=== PATIENT | female | born 1995 | race Asian ===

== ENCOUNTER → 2023-11-27 09:30 | Outpatient (CLI) | payer OTHER, SELFPAY ==
[2023-11-27 10:14] LABS: Miscellaneous to LabCorp NATERA KIT
[2023-11-27 10:36] LABS: Add Manual Diff / Slide Review NO; Basophils Absolute Auto 0 /uL (0-100); Eosinophils Absolute Auto 100 /uL (0-450); Eosinophils Percent Auto 0.6 % (2-4); Hematocrit 38.3 % (36-46); Hemoglobin 13.3 g/dL (12.0-16.0); Lymphocytes Absolute Auto 1900 /uL (1100-4500); Lymphocytes Percent Auto 14.3 % (25-40); Mean Corpuscular HGB Conc 34.8 % (30-36); Mean Corpuscular Hemoglobin 30.6 PG (26-34); Mean Corpuscular Volume 88.1 fL (80-100); Monocytes Absolute Auto 600 /uL (0-900); Monocytes Percent Auto 4.7 % (3-14); Neutrophils Absolute Auto 10700 /uL (1500-7000); Neutrophils Percent Auto 80.4 % (50-75); Platelet Count 250 X10^3/uL (150-400); Red Blood Cell Count 4.35 X10^6/uL (4.0-5.2); Red Cell Distribution Width 13.7 % (11.6-14.8); White Blood Cell Count 13.3 X10^3/uL (4.5-11.0)
[2023-11-27 11:18] LABS: Appearance Urine UA SL CLOUDY; Bilirubin Urine UA NEGATIVE (NEGATIVE); Color Urine UA YELLOW; Glucose Urine UA NEGATIVE (Negative); Ketones Urine UA NEGATIVE (NEGATIVE); Leukocyte Esterase Urine UA 1+ (NEGATIVE); Nitrite Urine UA NEGATIVE (Negative); Occult Blood Urine UA NEGATIVE (Negative); Protein Urine UA NEGATIVE (Negative); Urobilinogen Urine UA 0.2 E.U./dL (0.2)
[2023-11-27 11:20] LABS: pH Urine UA 6.5 (4.5-8.0)
[2023-11-27 11:21] LABS: Urine Volume 10mL (spun)
[2023-11-27 11:26] LABS: RBC Urine None Seen (0-5/HPF)
[2023-11-27 11:27] LABS: Amorphous Sediment Urine 2+; Bacteria Urine None Seen; Culture Indicated Urine Cult Not Indicated; Squamous Epithelial Cell Urine 0-1 /HPF (0-5/HPF); WBC Urine 1-5/HPF (0-5/HPF)
[2023-11-27 16:48] LABS: Hepatitis B Surface Antigen NEGATIVE s/c (NEGATIVE); Rubella Antibody IgG 42.8 IU/mL (>15)
[2023-11-27 17:43] LABS: HIV 1 & 2 Ab/Ag 4th Gen Combo NEGATIVE (NEGATIVE); Hep C Virus Ab w/Reflex Quant NEGATIVE s/c (NEGATIVE)
[2023-11-28 08:25] LABS: Varicella IgG Antibody 991 index (Immune >165)
[2023-11-29 06:41] LABS: RPR Screen Non Reactive (Non Reactive)
== END ==
PROVIDERS: Referring Provider Student in an Organized Health Care Education/Training Program; Visit Provider Student in an Organized Health Care Education/Training Program
DX: Z13.79 Encounter for other screening for genetic and chromosomal anomalies (principal); Z31.438 Encounter for other genetic testing of female for procreative management; Z3A.14 14 weeks gestation of pregnancy; Z36.0 Encounter for antenatal screening for chromosomal anomalies; Z34.00 Encounter for supervision of normal first pregnancy, unspecified trimester
CPT/HCPCS: 36415; 80055; 81003; 81015; 86787; 86803; 86850; 86900; 86901; 87086; 87389

== ENCOUNTER → 2024-01-13 07:43 | Outpatient (CLI) | payer OTHER, SELFPAY ==
--- NOTE | 2024-01-13 07:44 | DI.US.S_ITS ---
PROCEDURE: US OB >= 14 WEEKS FETUS INDICATIONS: ANATOMY OUTSIDE/PRIOR DATING DATA: LMP-based estimated date of delivery (FILIBERTO): 05/25/2024. First dating scan (date and location): 10/21/2023. Estimated date of delivery (FILIBERTO) from first dating scan: 05/26/2024. The calculations are made using the clinical FILIBERTO of 05/25/2024. TECHNIQUE: Real-time scanning was performed of the fetus, with image documentation and biometric measurements. Endovaginal scanning: Not performed COMPARISON: None. FINDINGS: General: A single living intrauterine gestation is present. Presentation: Variable. Placenta: Placental position is anterior , without previa. Amniotic fluid index: 17.9 cm, normal range is 5-24 cm. Single deepest vertical pocket is 6.3 cm. heart rate: 145 beats per minute. Maternal cervical canal: 3.6 cm long. Normal lower limit is 2.5 cm. biometrics: Biparietal diameter: 5.2 cm, 21 weeks 5 days Head circumference: 18.9 cm, 21 weeks 1 day Abdominal circumference: 15.6 cm, 20 weeks 5 days Femur length: 3.2 cm, 19 weeks 6 days Clinically estimated gestational age: 21 weeks 0 days Composite gestational age from present scan: 20 weeks 6 days Estimated weight and percentile: 357 g, 20 percentile Anatomic survey: Neuro: Ventricles are non-dilated at less than 10 mm. Cisterna magna is normal at 3-11 mm. Cerebellum is normal in size and morphology. Nuchal skin fold: Normal at less than 6 mm between 14-21 weeks gestational age. Face: Nose and lips, facial profile are normal. Spine: No evidence for spina bifida. Heart: 4-chambered heart is present, with normal ventricular outflow tracts. There is a probable left ventricular echogenic intracardiac focus. Diaphragm: Diaphragm is intact. Stomach: Left-sided stomach is present. Kidneys: No hydronephrosis. Normal is less than 5 mm in 2nd trimester, less than 7 mm in 3rd trimester. Cord: 3-vessel cord has orthotopic insertion. Bladder: Normal in size. Extremities: All 4 extremities identified. IMPRESSION: 1. Single live intrauterine consistent with 20 weeks and 6 days. 2. There is a left ventricular echogenic intracardiac focus. Consider aneuploidy screening for further evaluation. 3. The remainder of the anatomic survey is within normal limits. We strive to produce accurate, complete, and clear reports of imaging services. To assist us in improving patient care, this report was composed using standard report templates and voice recognition software. Therefore, it may contain abnormal punctuation, insertions and/or omissions. Occasional wrong-word or sound-alike substitutions may occur. Though we review the report and make efforts to correct it, we do recommend that the report be read carefully in proper context to recognize any text inaccuracies. Dictated by: Martir Bishop M.D. on 01/13/2024 at 11:18 Approved by: Martir Bishop M.D. on 01/13/2024 at 11:40
== END ==
PROVIDERS: Referring Provider Student in an Organized Health Care Education/Training Program; Visit Provider Student in an Organized Health Care Education/Training Program
DX: Z36.89 Encounter for other specified antenatal screening (principal); Z3A.20 20 weeks gestation of pregnancy
CPT/HCPCS: 76811

== ENCOUNTER → 2024-02-11 16:39 | Outpatient (CLI) | payer OTHER, SELFPAY ==
[2024-02-11 18:16] LABS: Hematocrit 33.6 % (36-46); Hemoglobin 11.6 g/dL (12.0-16.0)
[2024-02-11 18:38] LABS: GTT (PREG) 1 Hour PP 50gm Dose 119 mg/dL (76-139)
== END ==
PROVIDERS: Student in an Organized Health Care Education/Training Program; Referring Provider Family Medicine; Visit Provider Family Medicine
DX: Z34.92 Encounter for supervision of normal pregnancy, unspecified, second trimester (principal); Z13.1 Encounter for screening for diabetes mellitus; Z3A.24 24 weeks gestation of pregnancy
CPT/HCPCS: 36415; 82950; 85014; 85018

== ENCOUNTER → 2024-04-20 11:18 | Outpatient (CLI) | payer OTHER, SELFPAY ==
[2024-04-20 12:09] LABS: Alanine Aminotransferase 16 IU/L (<35); Albumin 3.7 g/dL (3.5-5.0); Albumin Globulin Ratio 1.2 (1.0-2.8); Alkaline Phosphatase 121 U/L (38-126); Aspartate Aminotransferase 27 IU/L (14-36); BUN Creatinine Ratio 11.9 (6-22); Bilirubin Total 0.3 mg/dL (0.2-1.3); Blood Urea Nitrogen 5 mg/dL (7-17); Calcium 9.3 mg/dL (8.4-10.2); Carbon Dioxide 25 mmol/L (22-32); Chloride 105 mmol/L (98-107); Estimated Glomerular Filt Rate > 60 mL/min (>60); Globulin 3.1 g/dL (1.7-4.1); Glucose 115 mg/dL (70-100); HEMOLYSIS < 15 (0-50); Potassium 4.2 mmol/L (3.4-5.1); Sodium 135 mmol/L (137-145); Total Protein 6.8 g/dL (6.3-8.2)
== END ==
LOC: LAB 11:19
PROVIDERS: Referring Provider Student in an Organized Health Care Education/Training Program; Visit Provider Student in an Organized Health Care Education/Training Program
DX: L29.8 Other pruritus (principal)
CPT/HCPCS: 36415; 80053; 82239

== ENCOUNTER → 2024-04-27 10:41 | Outpatient (CLI) | payer OTHER, SELFPAY ==
[2024-04-28 08:47] LABS: Strep Grp B PCR NEG for Grp B Strep
== END ==
PROVIDERS: Visit Provider Student in an Organized Health Care Education/Training Program
DX: Z3A.36 36 weeks gestation of pregnancy (principal)
CPT/HCPCS: 87653

== ENCOUNTER 2024-05-20 17:59 | Outpatient (CLI) | payer OTHER, SELFPAY ==
[2024-05-20 19:14] LABS: Add Manual Diff / Slide Review NO; Basophils Absolute Auto 0 /uL (0-100); Basophils Percent Auto 0.4 % (0-2); Eosinophils Absolute Auto 100 /uL (0-450); Eosinophils Percent Auto 0.6 % (2-4); Hematocrit 31.4 % (36-46); Hemoglobin 10.5 g/dL (12.0-16.0); Lymphocytes Absolute Auto 1200 /uL (1100-4500); Lymphocytes Percent Auto 11.3 % (25-40); Mean Corpuscular HGB Conc 33.4 % (30-36); Mean Corpuscular Hemoglobin 26.5 PG (26-34); Mean Corpuscular Volume 79.3 fL (80-100); Monocytes Absolute Auto 500 /uL (0-900); Monocytes Percent Auto 5.2 % (3-14); Neutrophils Absolute Auto 8400 /uL (1500-7000); Neutrophils Percent Auto 82.5 % (50-75); Platelet Count 254 X10^3/uL (150-400); Red Blood Cell Count 3.96 X10^6/uL (4.0-5.2); Red Cell Distribution Width 15.6 % (11.6-14.8); White Blood Cell Count 10.2 X10^3/uL (4.5-11.0)
[2024-05-20 19:20] LABS: Creatinine Urine Random 155.54 mg/dL; Protein (Total) Urine Random 11 mg/dL (0-12); Protein Creatinine Ratio Urine 0.07 GRAM/24H
[2024-05-20 19:32] LABS: Alanine Aminotransferase 17 IU/L (<35); Albumin 3.5 g/dL (3.5-5.0); Albumin Globulin Ratio 1.3 (1.0-2.8); Alkaline Phosphatase 141 U/L (38-126); Aspartate Aminotransferase 26 IU/L (14-36); BUN Creatinine Ratio 26.8 (6-22); Bilirubin Total 0.3 mg/dL (0.2-1.3); Blood Urea Nitrogen 11 mg/dL (7-17); Calcium 8.4 mg/dL (8.4-10.2); Carbon Dioxide 21 mmol/L (22-32); Chloride 107 mmol/L (98-107); Estimated Glomerular Filt Rate > 60 mL/min (>60); Globulin 2.8 g/dL (1.7-4.1); Glucose 133 mg/dL (70-100); HEMOLYSIS < 15 (0-50); Potassium 3.9 mmol/L (3.4-5.1); Sodium 135 mmol/L (137-145); Total Protein 6.3 g/dL (6.3-8.2); Uric Acid 5.2 mg/dL (2.5-6.2)
== END 2024-05-20 20:02 | disposition home or self-care (01) ==
LOC: LABOR 18:02 → OB 05-24 10:12
PROVIDERS: Obstetrics & Gynecology; Referring Provider Student in an Organized Health Care Education/Training Program; Visit Provider Student in an Organized Health Care Education/Training Program
DX: O16.3 Unspecified maternal hypertension, third trimester (principal); Z3A.39 39 weeks gestation of pregnancy
CPT/HCPCS: 59025; 80053; 82570; 84156; 84550; 85025; G0378; G0379

== ENCOUNTER 2024-05-23 19:07 | Inpatient (IN) | payer OTHER, SELFPAY ==
[2024-05-23 19:40] VITALS: BP 124/77
--- NOTE | 2024-05-23 19:48 | P.HPOB_ITS ---
OB HPI Date/Time Date of admission: 05/23/24 History of Present Condition Chief complaint: Induction FILIBERTO Calculator Estimated Delivery Date Method Current WG Current Estimate 05/25/24 LMP (Certain) 39w 5d Other Estimates 05/26/24 Ultrasound #1 39w 4d : 1 Para: 0 Narrative: Patient with uncomplicated here for elective IOL. GBS neg. care: good care Dating criteria OB: LMP confirmed by 1st trimester US Ultrasounds: normal 1st trimester US and normal mid trimester US Obstetrical complications: none Medical complications OB: none Preadmission Labs Last OB Lab Results: Blood Type A Positive 11/27/23 10:02 Antibody Screen Negative 11/27/23 10:02 Hct 31.4 % (36-46) L 05/20/24 19:05 Hgb 10.5 g/dL (12.0-16.0) L 05/20/24 19:05 Hep Bs Antigen Negative s/c (NEGATIVE) 11/27/23 10:02 Hepatitis C Antibody Negative s/c (NEGATIVE) 11/27/23 10:02 Rubella Antibody 42.8 IU/mL (>15) 11/27/23 10:02 VZV IgG Antibody 991 index (Immune >165) 11/27/23 10:02 Glucose 1 Hr 50 gm 119 mg/dL (76-139) 02/11/24 16:49 Group B Strep (PCR) Neg for grp b strep 04/27/24 10:41 Glucose Tolerance Testin hr -: Chlamydia screen: negative and Gonorrhea screen: negative Genetic Screens: Cell-free DNA: Normal Evaluation Evaluation Baseline heart rate: 135 Variability: Average (6-10) monitor accelerations: Present Monitor Decelerations: Absent Category of Tracing: Reactive PFSH Medical History (Updated 04/20/24 @ 11:05 by Peri Canas MD) Wears glasses Hearing decreased Anxiety Healthy adult Surgical History (Updated 10/21/23 @ 08:05 by Yessi Rizvi RN) No pertinent past surgical history Family History (Updated 11/21/23 @ 20:30 by Stefanie Tracey) Grandmother Lung cancer Smoker Grandfather Colon cancer Diabetes mellitus Stroke Mother Ovarian cyst H/O bilateral oophorectomy Hypertension Uncle Hypertension Aunt Hypertension Grandfather Pancreatic cancer Smoker Diabetes mellitus Grandmother Cancer Smoker Uncle Celiac disease Social History marital status: number of children: 0 household members: spouse lives independently: Yes caregiver/support person: No housing: house pets and animals: Yes (several birds, managing cage care) education level: college occupational status: employed 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) special ericka needs: No travel history: over 6 months ago seatbelt use: always water heater temp set < 120 deg: Yes working smoke detector in home: Yes fire extinguisher in home: Yes carbon monox detector in home: Yes firearms in home: Yes firearms unloaded and locked: Yes do you feel safe at home: Yes Smoking Status: Never smoker second hand exposure: No alcohol intake: former substance use type: does not use during the past year weight has: remained stable well-balanced diet: rarely or never daily servings fruits/ve-1 caffeine: Yes (aware of 200mg limit) Type(s) of exercise: walking Meds Home Medications and Allergies Home Medications Medication Instructions Recorded Confirmed Type vitamin-ferrous sulfate tab PO 10/21/23 05/17/24 History 27 mg iron-folic acid 0.8 mg tablet Allergies Allergy/AdvReac Type Severity Reaction Status Date / Time No Known Drug Allergies Allergy Unverified 05/17/24 15:04 Assessment and Plan Assessment and Plan Assessment and Plan narrative: 28 yo G1 at 39w5d here for elective IOL. GBS neg. -vaginal miso 25 mcg overnight Time-Based Coding :: [TOTAL MINUTES] spent with patient and on the chart (including review of chart, obtaining history, exam, reviewing outside data, placing orders, documenting exam and treatment plan, and counseling patient) on [DATE].
[2024-05-23 20:04] LABS: Add Manual Diff / Slide Review NO; Basophils Absolute Auto 0 /uL (0-100); Basophils Percent Auto 0.2 % (0-2); Eosinophils Absolute Auto 100 /uL (0-450); Eosinophils Percent Auto 0.6 % (2-4); Hematocrit 32.6 % (36-46); Hemoglobin 10.7 g/dL (12.0-16.0); Lymphocytes Absolute Auto 1200 /uL (1100-4500); Lymphocytes Percent Auto 11.1 % (25-40); Mean Corpuscular HGB Conc 32.9 % (30-36); Mean Corpuscular Hemoglobin 25.8 PG (26-34); Mean Corpuscular Volume 78.5 fL (80-100); Monocytes Absolute Auto 600 /uL (0-900); Monocytes Percent Auto 5.7 % (3-14); Neutrophils Absolute Auto 9200 /uL (1500-7000); Neutrophils Percent Auto 82.4 % (50-75); Platelet Count 262 X10^3/uL (150-400); Red Blood Cell Count 4.15 X10^6/uL (4.0-5.2); Red Cell Distribution Width 15.9 % (11.6-14.8); White Blood Cell Count 11.2 X10^3/uL (4.5-11.0)
[2024-05-23 20:16] LABS: Uric Acid 4.7 mg/dL (2.5-6.2)
[2024-05-23] MEDS: miSOPROStoL 25 MCG TABLET VAG (20:40)
[2024-05-24] MEDS: LACTATED RINGERS 1,000 ML 100 ML IV (00:49)
--- NOTE | 2024-05-24 01:41 | PM.AN.REGBLK ---
Regional Block Pre-procedure Procedure: Continuous Lumbar Epidural for L&D Attending OB provider: Peri Canas PM/ROS narrative: elective IOL, term, no obstetric or medical complications. ASA Class: II Labs: Hct 32.6 % (36-46) L 05/23/24 19:50 Plt Count 262 X10^3/uL (150-400) 05/23/24 19:50 Medications: Current Medications Generic Name Dose Route Start Last Admin Trade Name Freq PRN Reason Stop Dose Admin Acetaminophen 650 mg 05/23/24 19:40 Acetaminophen 325 Mg Tablet PO Q4HR PRN Fever/Mild Pain (1-3) Calcium Carbonate 1,000 mg 05/23/24 19:40 Calcium Carbonate 500 Mg Tab PO Q4HR PRN Dyspepsia Carboprost Tromethamine 250 mcg 05/23/24 19:40 Carboprost 250 Mcg/Ml Ampul IM Q90M PRN Bleeding Fentanyl 50 mcg 05/23/24 19:40 Fentanyl 100 Mcg/2 Ml Inj IV Q1H PRN Pain, Moderate (4-6) Lactated Ringer's 1,000 mls @ 100 mls/hr 05/23/24 19:45 05/24/24 00:49 Lactated Ringers IV 100 mls/hr CONT SIA Administration Oxytocin/Lactated Ringer's 30 unit in 500 mls @ 200 mls/hr 05/23/24 19:40 Oxytocin Premix IV CONT PRN Bleeding Protocol Tranexamic Acid 1,000 mg/ 100 mls @ 600 mls/hr 05/23/24 19:40 Sodium Chloride IV NOW PRN Bleeding Lactated Ringer's 1,000 mls @ 100 mls/hr 05/23/24 19:45 Lactated Ringers IV CONT SIA Lidocaine HCl 20 ml 05/23/24 19:40 Lidocaine 1% 20 Ml INJ INTRA-OP PRN Post Delivery Methylergonovine Maleate 0.2 mg 05/23/24 19:40 Methylergonovine 0.2 Mg/Ml Vial IM NOW PRN Bleeding Methylergonovine Maleate 0.2 mg 05/23/24 19:40 Methylergonovine 0.2 Mg Tablet PO Q6HR PRN Heavy Bleeding Misoprostol 400 mcg 05/23/24 19:40 Misoprostol 200 Mcg Tablet SL NOW PRN Bleeding Misoprostol 800 mcg 05/23/24 19:40 Misoprostol 200 Mcg Tablet MI NOW PRN Bleeding Naloxone HCl 0.2 mg 05/23/24 19:40 Naloxone 0.4 Mg/Ml Vial IV Q2MIN PRN Opiate Reversal Ondansetron HCl 4 mg 05/23/24 19:40 Ondansetron 4 Mg/2 Ml Inj IV Q4HR PRN Nausea And Vomiting Oxytocin 10 unit 05/23/24 19:40 Oxytocin 10 Unit/Ml Vial IM NOW PRN Bleeding Zolpidem Tartrate 5 mg 05/23/24 19:40 Zolpidem 5 Mg Tablet PO BEDTIME PRN Sleep Allergies: Allergies Allergy/AdvReac Type Severity Reaction Status Date / Time No Known Drug Allergies Allergy Unverified 05/17/24 15:04 Procedure Insertion date: 05/24/24 Insertion time: 02:01 Prep/Local: betadine x3 and 1% lidocaine Interspace: L3-4 Patient position: sitting Needle: 18 gauge Hustead (CSE: 27g Pencan through Hustead, clear CSF, 1mL 0.25% bupiv MPF) Loss of resistance with: saline DARNELL at (cm): 6 Catheter placed at SKIN (cm): 12 Catheter in SPACE (cm): 6 Insertion: No CSF, No Blood, No Paresthesia with insertion, No Paresthesia with injection and No Test dose reaction Initial Medications TEST DOSE time: 02:01 TEST DOSE: 1.5% lidocaine with epinephrine 1:200k (mL): 3 BOLUS DOSE time: 02:09 BOLUS DOSE (mL): 4 BOLUS DOSE med: other (infusate) Infusion INFUSION: 0.125% bupivacaine and with fentanyl 2 mcg/mL Initial rate (mL/hr): 9 Subsequent interventions: PCEA@9+4 Post-procedure Anesthesia date START: 05/24/24 Anesthesia time START: 01:47 Anesthesia date END: 05/24/24 Anesthesia time END: 06:01 Post-procedure Anesthesia Assessment: Yes CV function: HR/BP stable, Yes Resp function: RR/sat/airway adequate, Yes Post-op hydration adequate, Yes Pain control adequate, Yes Nausea & vomiting absent, Yes Temperature > 36 C, Yes Mental status appropriate and No Anesthesia complications
[2024-05-24] MEDS: TRANEXAMIC ACID 1,000 MG in SODIUM CHLORIDE 0.9% 100 ML 600 MG IV (06:18)
[2024-05-24] MEDS: miSOPROStoL 200 MCG TABLET 800 MCG PR (06:19)
[2024-05-24] MEDS: OXYTOCIN PREMIX 30 UNIT/500 ML PLAST..BAG 200 UNIT IV (06:19)
--- NOTE | 2024-05-24 06:35 | PM.OBPRVD ---
Events: Meconium Stained Fluid Labor & Delivery Delivery date: 05/24/24 Cervical ripening method: per misoprostal protocol Delivery augmentation: rupture of membranes and pitocin Delivery monitor: external FHT Route of delivery: Estimated blood loss (mL): 350 Quantitative Blood Loss: 567 Anesthesia Type: Epidural Narrative: Date 05/24/2024 BRIEF HISTORY: This a 28 year-old at 39w5d weeks who gave on 05/24/2024 at 5:51am. STAGE I:? Labor The patient labored for 3 hour(s) and 51 minute(s). Indications for Induction:elective Induction agents: miso Augmentation: AROM Rupture of membranes occurred with AROM.? Amniotic fluid: thin mec. She reached full dilation at 4:21am. Analgesia for labor was epidural. STAGE II: Delivery The second stage of labor lasted 1 hours and 30 minute(s). Presentation was OA. A baby was born.? Birthweight was 8 lb 11 oz. scores were 9 at one minute and 9 at five minutes. STAGE III: Placenta/Cord The third stage of labor lasted 6 minute(s). Placental delivery was uncomplicated and it appeared normal. Cord features: True knot. Perineal laceration:? Third degree, repaired with 3-0 vicryl EBL: 350 mL. Needle and sponge counts were correct.? The vagina was inspected and no items were left in situ. Christine was doing well with Filiberto, her and at bedside. Plan for aftercare: Routine care
[2024-05-24] MEDS: CEFAZOLIN 2 GM/100 ML PREMIX 100 ML IV (06:45)
[2024-05-24] MEDS: ACETAMINOPHEN 325 MG TABLET 650 MG PO ×3 (08:30→22:42)
[2024-05-24] MEDS: DOCUSATE 100 MG CAPSULE PO (08:52)
[2024-05-24] MEDS: KETOROLAC 30 MG/ML VIAL IV ×3 (08:53→22:41)
[2024-05-25] MEDS: ACETAMINOPHEN 325 MG TABLET 650 MG PO ×2 (05:19→11:03)
[2024-05-25] MEDS: OXYCODONE IR 5 MG TABLET PO ×2 (05:19→11:02)
[2024-05-25] MEDS: KETOROLAC 30 MG/ML VIAL IV (05:19)
--- NOTE | 2024-05-25 08:10 | PM.OBDS.1 ---
Discharge Providers Provider Date of admission: 05/23/24 19:07 Discharge Date: 05/25/24 Primary care physician: Peri Canas MD Consults: 05/23/24 19:40 Consult to Anesthesiology Urgent Comment: Consulting Provider: Anesthesiologist Reason for consultation: Epidural 05/25/24 06:36 Consult to Lock[employer]ch [employer] T[employer]er Routine Comment: Discharge provider: Peri Canas MD Summary Hospital Course Date Patient Seen: 05/25/24 Time Patient Seen: 07:45 Diagnoses: Vaginal delivery Hospital Course: 28 yo G1 now P1 who presented at 39w5d for elective IOL. She was GBS neg. She had epidural anesthesia. She received one vaginal dose of misoprostol and progressed to completed. She pushed for 30 minutes and delivered a vigorous male . She is exclusively . She has been up moving around and voided. Pain is well controlled. Bleeding is similar to menstrual cycle. Peripartum Data Infant Delivery Method: Natural Vaginal Laceration Description: Perineal - 3rd Degree complications: none Status at Discharge Cognitive/behavioral status at discharge: oriented Functional status at discharge: independent ambulation Overall status at discharge: patient is back to baseline Time Spent with Patient Time attestation: Total time spent providing and/or coordinating discharge services: Time spent: Greater than 30 minutes Objective Labs 05/23/24 19:50 Discharge Plan Discharge Plan Patient Disposition: Home Discharge orders & Medications Prescriptions: New oxycodone 5 mg Tablet 5 mg PO Q4HR PRN (Reason: Pain, Moderate (4-6)) Qty: 10 0RF polyethylene glycol 3350 [Miralax] 17 gram/dose powder 17 g PO BID Qty: 510 0RF docusate sodium 100 mg Capsule 100 mg PO BID Qty: 60 0RF acetaminophen 325 mg Tablet 650 mg PO Q4HR PRN (Reason: Fever/Mild Pain (1-3)) Qty: 60 0RF Continued vit-ferrous sulfat-FA 27 mg iron- 0.8 mg tablet PO Follow up/Referrals: Doctor Roberts MD [Primary Care Provider] - Visit Report/Discharge Packet Stand Alone Forms: Patient Portal/API Discharge Data Primary Care Provider: Doctor Alejandra
[2024-05-25] MEDS: DOCUSATE 100 MG CAPSULE PO (11:02)
[2024-05-25] MEDS: IBUPROFEN 600 MG TABLET PO (11:03)
== END 2024-05-25 12:19 | disposition home or self-care (01) | DRG 768 ==
PROVIDERS: Admitting Provider Student in an Organized Health Care Education/Training Program; Referring Provider Student in an Organized Health Care Education/Training Program; Visit Provider Student in an Organized Health Care Education/Training Program
DX: O70.20 Third degree perineal laceration during delivery, unspecified (principal); Z37.0 Single live birth; Z3A.39 39 weeks gestation of pregnancy
CPT/HCPCS: 36415; 59025; 59050; 59200; 80053; 82570; 84156; 84550; 85025; 86850; 86900; 86901; G0379; J0690; J1885; J2590; S0191

== ENCOUNTER 2024-05-26 13:39 | Observation (INO) | payer OTHER, SELFPAY ==
[2024-05-26 13:50] VITALS: BP 121/77; PULSE 103; RESP 16; O2SAT 97
[2024-05-26] MEDS: IBUPROFEN 600 MG TABLET PO (14:22)
[2024-05-26 14:25] VITALS: BP 117/75; PULSE 80; RESP 16; TEMP 36.8
[2024-05-26 14:36] LABS: Add Manual Diff / Slide Review NO; Basophils Absolute Auto 100 /uL (0-100); Basophils Percent Auto 0.4 % (0-2); Eosinophils Absolute Auto 300 /uL (0-450); Eosinophils Percent Auto 1.7 % (2-4); Hematocrit 26.9 % (36-46); Hemoglobin 8.7 g/dL (12.0-16.0); Lymphocytes Absolute Auto 1800 /uL (1100-4500); Lymphocytes Percent Auto 10.1 % (25-40); Mean Corpuscular HGB Conc 32.4 % (30-36); Mean Corpuscular Hemoglobin 25.7 PG (26-34); Mean Corpuscular Volume 79.3 fL (80-100); Monocytes Absolute Auto 800 /uL (0-900); Monocytes Percent Auto 4.7 % (3-14); Neutrophils Absolute Auto 14500 /uL (1500-7000); Neutrophils Percent Auto 83.1 % (50-75); Platelet Count 289 X10^3/uL (150-400); Red Cell Distribution Width 15.7 % (11.6-14.8); White Blood Cell Count 17.4 X10^3/uL (4.5-11.0)
--- NOTE | 2024-05-26 14:36 | PC.NURSE ---
1345: Pt presents to [facility] from the ER w/ c/o headache, joint pain, sharp pain under her ribs and on side of abdomen. She states she has been taking oxycodone but trying to wean off of it. Pt stated she had not taken any Ibuprofen or Tylenol since yesterday. She also states she drinks a lot of juice and probably not enough water. 1356: Dr. RAND in office and notified of pt and verbal orders received
[2024-05-26 14:39] LABS: Alanine Aminotransferase 19 IU/L (<35); Albumin 3.1 g/dL (3.5-5.0); Albumin Globulin Ratio 1.1 (1.0-2.8); Alkaline Phosphatase 113 U/L (38-126); Aspartate Aminotransferase 30 IU/L (14-36); BUN Creatinine Ratio 8.3 (6-22); Bilirubin Total 0.2 mg/dL (0.2-1.3); Blood Urea Nitrogen 4 mg/dL (7-17); Calcium 7.9 mg/dL (8.4-10.2); Carbon Dioxide 25 mmol/L (22-32); Chloride 108 mmol/L (98-107); Estimated Glomerular Filt Rate > 60 mL/min (>60); Globulin 2.8 g/dL (1.7-4.1); Glucose 104 mg/dL (70-100); HEMOLYSIS < 15 (0-50); Potassium 3.5 mmol/L (3.4-5.1); Sodium 138 mmol/L (137-145); Total Protein 5.9 g/dL (6.3-8.2)
[2024-05-26 14:45] VITALS: BP 114/76; PULSE 96; RESP 16
--- NOTE | 2024-05-26 14:45 | PC.NURSE ---
1408: CBC/CMP drawn by RN and sent to lab
--- NOTE | 2024-05-26 14:53 | PC.NURSE ---
1445: pt resting in bed. Bilateral patellar reflexes 2+, no clonus. Bilateral pedal edema 2+ pitting
--- NOTE | 2024-05-26 15:01 | PM.OBTRLD ---
Visit Information Visit Information Date of evaluation: 05/26/24 Primary OB Provider: Peri Canas Reason for Evaluation: Yes other Comments/Additional reasons for admission: Patient presented 2 days from a vaginal delivery with headache and joint pain. She has not taken ibuprofen or tylenol since yesterday. She has been taking oxycodone for pain control. She is . Vital Signs Vital Signs: Vital Signs - 8 hr 05/26/24 13:50 05/26/24 14:25 05/26/24 14:45 Temperature 98.3 F Pulse Rate 103 H 80 96 H Respiratory Rate 16 16 16 Blood Pressure 121/77 117/75 114/76 Pulse Oximetry 97 PFSH Medical History (Updated 04/20/24 @ 11:05 by Peri Canas MD) Wears glasses Hearing decreased Anxiety Healthy adult Surgical History (Updated 10/21/23 @ 08:05 by Yessi Rizvi RN) No pertinent past surgical history Family History (Updated 11/21/23 @ 20:30 by Stefanie Tracey) Grandmother Lung cancer Smoker Grandfather Colon cancer Diabetes mellitus Stroke Mother Ovarian cyst H/O bilateral oophorectomy Hypertension Uncle Hypertension Aunt Hypertension Grandfather Pancreatic cancer Smoker Diabetes mellitus Grandmother Cancer Smoker Uncle Celiac disease Social History marital status: number of children: 0 household members: spouse lives independently: Yes caregiver/support person: No housing: house pets and animals: Yes (several birds, managing cage care) education level: college occupational status: employed 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 needs: No travel history: over 6 months ago seatbelt use: always water heater temp set < 120 deg: Yes working smoke detector in home: Yes fire extinguisher in home: Yes carbon monox detector in home: Yes firearms in home: Yes firearms unloaded and locked: Yes do you feel safe at home: Yes Smoking Status: Never smoker second hand exposure: No alcohol intake: former substance use type: does not use during the past year weight has: remained stable well-balanced diet: rarely or never daily servings fruits/ve-1 caffeine: Yes (aware of 200mg limit) Type(s) of exercise: walking Exam Vital Signs (past 8 hours): - 05/26/24 13:50 05/26/24 14:25 05/26/24 14:45 Temperature 98.3 F Pulse Rate 103 H 80 96 H Respiratory Rate 16 16 16 Blood Pressure 121/77 117/75 114/76 Pulse Oximetry 97 Objective Labs 05/26/24 14:10 05/26/24 14:10 Labs: Laboratory Results - last 24 hr 05/26/24 14:10 WBC 17.4 H RBC 3.40 L Hgb 8.7 L Hct 26.9 L MCV 79.3 L MCH 25.7 L MCHC 32.4 RDW 15.7 H Plt Count 289 Neut % (Auto) 83.1 H Lymph % (Auto) 10.1 L Citrus % (Auto) 4.7 Eos % (Auto) 1.7 L Baso % (Auto) 0.4 Neut # (Auto) 13838 H Lymph # (Auto) 1800 Citrus # (Auto) 800 Eos # (Auto) 300 Baso # (Auto) 100 Sodium 138 Potassium 3.5 Chloride 108 H Carbon Dioxide 25 BUN 4 L Creatinine 0.48 L Estimated GFR > 60 BUN/Creatinine Ratio 8.3 Glucose 104 H Calcium 7.9 L Total Bilirubin 0.2 AST 30 ALT 19 Alkaline Phosphatase 113 Total Protein 5.9 L Albumin 3.1 L Globulin 2.8 Albumin/Globulin Ratio 1.1 Diagnosis, Plan/Disposition Plan/Disposition Plan: Safe for discharge. CMP and CBC without concerns of pre-eclampsia. WBC slightly elevated however, BP, pulse and temp normal, likely reactive from delivery. Recommend increasing water intake and eating small meals throughout the day. Follow up in 2 days with PCP. OB Disposition: home
--- NOTE | 2024-05-26 15:15 | PC.NURSE ---
orders received from Dr. RAND-pt may discharge home. This RN verbalized discharge instructions to pt and her SO. she verbalized understanding. Pt to f/u w/ Dr. RAND in office on monday 05/28
== END 2024-05-26 15:17 | disposition home or self-care (01) ==
PROVIDERS: Admitting Provider Family Medicine; Referring Provider Family Medicine; Visit Provider Family Medicine
DX: O90.89 Other complications of the puerperium, not elsewhere classified (principal); R51.9 Headache, unspecified; D72.829 Elevated white blood cell count, unspecified; M25.50 Pain in unspecified joint
CPT/HCPCS: 80053; 85025; G0378; G0379

== ENCOUNTER 2025-03-15 21:06 | Emergency (ER) | payer OTHER, SELFPAY ==
[2025-03-15 21:22] VITALS: BP 120/66; PULSE 110; RESP 18; TEMP 37.6; O2SAT 97; BMI 25.8
--- NOTE | 2025-03-15 21:49 | ED_ITS ---
HPI - URI/Sore Throat General Chief Complaint: Upper Respiratory Symptoms Stated Complaint: states narly flu symptoms Time Seen by Provider: 03/15/25 21:49 Source: patient Mode of arrival: Ambulatory History of Present Illness HPI Narrative: 29-year-old female with no no significant past medical history presenting for upper respiratory symptoms, states it has been having a cough over the past week, states as she has also been having some runny nose, chills, states that symptoms have not gotten any better therefore decided come into the ED for further evaluation treatment. Denies any other symptoms at this time. she states that 2 of her other coworkers had similar symptoms prior, she states that they did get diagnosed with pneumonia and she is worried that she might have this as well which is what brought her in. Related Data Home Medications Medication Instructions Recorded Confirmed No Known Home Medications 03/15/25 03/15/25 Allergies Allergy/AdvReac Type Severity Reaction Status Date / Time No Known Drug Allergies Allergy Verified 03/15/25 21:22 Review of Systems Review of Systems Narrative: General: Denies fever, chills, weight loss HEENT: positive rhinorrhea,Denies headache, eye drainage, eye irritation, head trauma, sore throat, voice change Cardiovascular: Denies any chest pain, palpitations, tachycardia Respiratory: positive cough, Denies any shortness of breath wheeze, stridor GI/: Denies any abdominal pain, nausea, vomiting, diarrhea, bright red blood per rectum, melanotic stools, urinary frequency, urinary retention, dysuria, hematuria MSK: Denies any joint pain, muscle pains, swelling Skin: Denies any rashes, lesions, discoloration Neuro: Denies any headache, lightheadedness, dizziness, fainting, weakness Psych: Denies SI/HI Patient History Medical History (Updated 03/15/25 @ 22:27 by Doron Miranda DO) Wears glasses Hearing decreased Anxiety Healthy adult Surgical History (Updated 10/21/23 @ 08:05 by Yessi Rizvi RN) No pertinent past surgical history Family History (Updated 11/21/23 @ 20:30 by Stefanie Tracey) Grandmother Lung cancer Smoker Grandfather Colon cancer Diabetes mellitus Stroke Mother Ovarian cyst H/O bilateral oophorectomy Hypertension Uncle Hypertension Aunt Hypertension Grandfather Pancreatic cancer Smoker Diabetes mellitus Grandmother Cancer Smoker Uncle Celiac disease Social History marital status: number of children: 0 household members: spouse lives independently: Yes caregiver/support person: No housing: house pets and animals: Yes (several birds, managing cage care) education level: college occupational status: employed 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) special ericka needs: No travel history: over 6 months ago seatbelt use: always water heater temp set < 120 deg: Yes working smoke detector in home: Yes fire extinguisher in home: Yes carbon monox detector in home: Yes firearms in home: Yes firearms unloaded and locked: Yes do you feel safe at home: Yes Smoking Status: Never smoker second hand exposure: No alcohol intake: former substance use type: does not use during the past year weight has: remained stable well-balanced diet: rarely or never daily servings fruits/ve-1 caffeine: Yes (aware of 200mg limit) Type(s) of exercise: walking Smoking Status: Never smoker Exam Narrative Exam Narrative: General: Cooperative, well-developed, not in acute distress HEENT: Normocephalic, atraumatic, PERRLA, normal sclera, eyelids normal Neck: Active full range of motion, atraumatic Chest: Normal to inspection, negative crepitus, no overlying erythema ecchymosis Respiratory: coughing on exam, Normal respiratory effort, not in acute resp iratory distress, clear to auscultation bilaterally negative wheeze, tachypnea, rhonchi, rales Cardiology: Regular rate rhythm negative gallop, murmur, rubs GI/: No tenderness to palpation, soft, non rigid, normal to inspection, exam deferred MSK: Full active range of motion in all 4 extremities, atraumatic, no tenderness to palpation of any bony prominences Skin: No rashes or lesions noted Neuro: Alert awake oriented x3, moves all 4 extremities spontaneously, cranial nerves intact, able to answer all questions appropriately follows commands appropriately Psych: Cooperative, negative suicidal or homicidal ideations Initial Vital Signs Initial Vital Signs: Vital Signs Temperature 99.6 F 03/15/25 21:22 Pulse Rate 110 H 03/15/25 21:22 Respiratory Rate 18 03/15/25 21:22 Blood Pressure 120/66 03/15/25 21:22 Pulse Oximetry 97 03/15/25 21:22 Oxygen Delivery Method Room Air 03/15/25 21:22 Course Orders Ordered: ED Orders 03/15/25 21:26 Covid-19 + FLU A/B + RSV - PCR Stat 03/15/25 21:58 CXR [XR chest 1V] Stat Vital Signs Vital signs: Vital Signs - 8 hr 03/15/25 21:22 Temperature 99.6 F Pulse Rate 110 H Respiratory Rate 18 Blood Pressure 120/66 Pulse Oximetry 97 Oxygen Delivery Method Room Air MDM - URI/Sore Throat Differential Diagnosis Differential diagnosis: Likely upper respiratory infection, viral infection, influenza and other ( pneumonia) Lab Data Labs: Lab Results 03/15/25 Range/Units 21:26 SARS-CoV-2 (PCR) Negative (Negative) Influenza A (RT-PCR) Flu a negative (NEGATIVE) Influenza B (RT-PCR) Flu b positive H (NEGATIVE) RSV (PCR) Negative (Negative) Imaging Data Chest x-ray: Radiologist's Impression: [address] [address] XRay Report Signed Patient: Kerry Kendrick MR#: [id number] : 1995 Acct:[id number] Age/Sex: 29 / F Date of Service: 03/15/25 Loc: ED Accession Number: [id number] Procedure: XR chest 1V Ordering Provider: Doron Miranda D.O. PROCEDURE: XR CHEST 1V INDICATIONS: cough TECHNIQUE: One view of the chest was acquired. COMPARISON: None. FINDINGS: Surgical changes and devices: None. Lungs and pleura: Lungs are clear. No pleural effusions or pneumothorax. Mediastinum: Mediastinal contours appear normal. Heart size is normal. Bones and chest wall: No suspicious bony lesions. Overlying soft tissues appear unremarkable. IMPRESSION: No acute cardiopulmonary pathology. [facility] Narrative Medical decision making narrative: 29-year-old female no significant past medical history presents for flu-like symptoms has been ongoing persistent for the past week, describes symptoms as cough, as well as muscle aches fevers chills, states symptoms have been ongoing persistent for the past week, states that she had 2 coworkers with similar symptoms she states that she is worried she has pneumonia needs antibiotics due to the fact that her other 2 coworkers needed antibiotics. At time of evaluation patient coughing but is protecting airway no expiratory wheezes on auscultation of lungs, patient had respiratory panel and chest x-ray performed here in the emergency department, no signs of pneumonia. Patient well-appearing nontoxic not requiring supplemental oxygen,agrees with being discharged home with outpatient follow up Discharge Plan Departure Patient Disposition: Home Clinical Impression: Influenza B Instructions: DI for Influenza -- Adult Activity Restrictions/Additional Instructions: please follow up with your primary care doctor Please read the discharge instructions sheet carefully and bring all papers to all doctor follow-up visits, as it may contain information that your doctor may want to see. Disease processes change and evolve, if your symptoms worsen or if you develop any new symptoms that are concerning to you please return for evaluation. Your evaluation today does not show any evidence of any life- threatening/serious illnesses requiring admission to the hospital or surgery. Please follow-up with your doctor for re-evaluation in approximately 1 day. Seek immediate medical attention for any worrisome symptoms. *If you do not have a primary care provider please contact the [facility] Resource line at [phone]. They will ask some questions about your medical history and help get you set up with a doctor in the community. Prescriptions: No Action No Known Home Medications Referrals: Peri Canas MD [Primary Care Provider] - Stand Alone Forms: Patient Portal/API/Survey
--- NOTE | 2025-03-15 21:58 | DI.RAD.S_ITS ---
PROCEDURE: XR CHEST 1V INDICATIONS: cough TECHNIQUE: One view of the chest was acquired. COMPARISON: None. FINDINGS: Surgical changes and devices: None. Lungs and pleura: Lungs are clear. No pleural effusions or pneumothorax. Mediastinum: Mediastinal contours appear normal. Heart size is normal. Bones and chest wall: No suspicious bony lesions. Overlying soft tissues appear unremarkable. IMPRESSION: No acute cardiopulmonary pathology. Dictated by: Demario Marquez M.D. on 03/15/2025 at 22:34 Approved by: Demario Marquez M.D. on 03/15/2025 at 22:34
[2025-03-15 22:23] LABS: Influenza A - CEPHEID Flu A NEGATIVE (NEGATIVE); Influenza B - CEPHEID Flu B POSITIVE (NEGATIVE); Respiratory Syncytial Virus Negative (Negative)
[2025-03-15 22:24] LABS: COVID-19 CEPHEID 4-PLEX PCR Negative (Negative)
[2025-03-15 23:02] VITALS: BP 117/67; PULSE 104; RESP 24; O2SAT 96
== END 2025-03-15 23:03 | disposition home or self-care (01) ==
PROVIDERS: Emergency Provider Student in an Organized Health Care Education/Training Program; PCP Student in an Organized Health Care Education/Training Program
DX: J10.1 Influenza due to other identified influenza virus with other respiratory manifestations (principal)
CPT/HCPCS: 0241U; 71045; 99281; 99283

== ENCOUNTER 2025-04-12 13:45 | Outpatient (RCR) | payer OTHER, SELFPAY ==
--- NOTE | 2025-04-06 16:53 | OT.OPPOC ---
Physical, Occupational & Speech Therapy At [facility] Kerry Kendrick [id number] 1995 Visit Care Team Role Provider Type Peri Canas MD Family Provider Physician Primary Care Provider Address: [facility] [place], [address] Bo Martínez MD Attending Provider Physician Referring Provider Address: [address] [place] [address], [address] Occupational Therapy Plan of Care OT Outpatient Adult Evaluation Start: 04/06/25 13:32 Freq: Status: Active Protocol: Document 04/06/25 13:32 (Rec: 04/06/25 13:35 [id number]) General Information - Adult Visit Information Visit Number 1 of 4 Plan of Care Dates 04/06/25-05/04/25 Insurance [employer], no [place];no copay;$100 deductible satisfied;max Information 60 PT/OT/ST combined Session Time Visit Start Date 04/06/25 Visit Start Time 13:45 Visit Stop Time 14:30 Setting Treatment Setting Outpatient Care Visit Type Note Type Initial Evaluation Referral Referring Physician Dr Bo Martínez Reason for Referral recurrent ganglion cysts with R wrist pain Identification Identification Yes Confirmed Identification EMR Confirmed By Social Information Social History I haven't really had much pain since the surgery, and have been able to use it but, I am careful and don't mushroom picker much weight Patient Questionnaires Quick Dash- Upper Extremity Quick Dash UE Score 25 Quick Dash UE 20 to 39% Impaired (Score 20-39) Impairment Goals Objective Measurements Objective Pt with 5/5 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 Pt reports negligible pain since surgery though noting numbness at thenar eminence of R hand. Pt advised she has been avoiding lifting much weight but has been using her affected hand as usual with surgical bandage intact. Short Term Goals Short Term Goals 1. Pt will independently demo HEP 2. Pt will report 0/10 pain at rest Senior Care Goals Piano Mechanic Goals 1. Pt will demonstrate improved perception of functional independence as evidenced by quick DASH score <15 2. Pt will verbalize proper splint use and wear independently to prevent functional deficits or skin breakdown Assessment/Plan Assessment Patient Response Excellent Rehabilitation Excellent Potential Impairments Functional Activities,Pain,Range of Motion,Meaningful Identified Activities,Stiffness,Soft Tissue Mobility Treatment Assessment 29 year old R hand dominant female referred to Occupational Therapy by Dr Bo Beaver following surgical excision of multiple ganglion cysts of R wrist that were causing nerve compression and numbness with intermittent pain. Pt POD 8 at time of evaluation and thus strengthening/resistance deferred to next treatment pending removal of surgical bandages and follow up with surgeon 04/11. Pt demonstrating appropriate use of RUE during functional tasks, is avoiding lifting and has been completing light AROM of fingers and thumb since surgery date. Pt will benefit from continued skilled OT to address surgical after care, progression of HEP and strengthening/AROM. Home Exercise Pt educated on AROM to prevent stiffness and swelling Program until f/u with surgeon and removal of surgical bandages Reviewed with Goals,Progress Being Made,Home Exercise Program Patient Patient Excellent Understanding Plan Length of treatment 4 (weeks) Plan of Care Start 04/06/25 Date Plan of Care End 05/04/25 Date Treatment Frequency Once a Week Treatment Duration 45 Minutes Therapeutic Contents Active Range of Motion,Functional Activities,Home Exercise Program,Manual Therapy,Education,Self-Care, Stretching/Flexibility Activities,Therapeutic Activities,Therapeutic Exercises,Work Conditioning Modalities As Needed Types of Modalities Ice Massage Patient Instruction Home Exercise Program,Plan of Care,Questions/Concerns Patient Continue with Current Program Recommendations Electronically Signed by: Abimbola Pedraza OT 04/06/25 [id number] If you are in agreement with this Plan of Care, please return a signed and dated copy. I have reviewed this Plan of Care and certify that the skilled therapy services above are required to meet the patient?s needs. Physician Signature Date Printed Name and Credentials Clinical Instructor Signature Printed Name and Credentials
--- NOTE | 2025-04-12 16:31 | OT.OP.TRT ---
Visit Care Team Role Provider Type Peri Canas MD Family Provider Physician Primary Care Provider Specialty: Family Practice Obstetrics Address: [address] [place] [address], [id number] Email: [email or web address] Bo Martínez MD Attending Provider Physician Referring Provider Specialty: Orthopedics Orthopedic Surgery Address: [address] [place] [address], [id number] Email: [email or web address] Occupational Therapy Treatment Note OT Outpatient Treatment Note - Adult Start: 04/06/25 13:32 Freq: Status: Active Protocol: Document 04/12/25 16:11 (Rec: 04/12/25 16:19 [id number]) OT Outpatient Adult Treatment Note Session Time Visit Start Date 04/12/25 Visit Start Time 01:45 Visit Stop Time 02:30 Visit Information Visit Number 2 Plan of Care Dates 04/06/25-05/04/25 Setting Treatment Setting Outpatient Care Visit Type Note Type Treatment Note - Subjective Identification Type Name,Date of Identification Medical Record Reconciled With Others Present Family Comment The stitches came out, it was open in a few spots but, doing good! - Objective Objective RUE: Flight Data Technician- 31/31/32 Avg 31.3#, Tripod Pinch- 20#, Measurements Lateral Pinch- 16#; LUE: Flight Data Technician- /28 Avg 27.3# Short Term Goals 1. Pt will independently demo HEP 2. Pt will report 0/10 pain at rest Detention Goals 1. Pt will demonstrate improved perception of functional independence as evidenced by quick DASH score <15 2. Pt will verbalize proper splint use and wear independently to prevent functional deficits or skin breakdown - Treatment 1 Descriptor Pt continues to report numbness along thenar eminence, pt educated on desensitization techniques to encourage return of sensation, pt verbalized understanding Exercises 1 Descriptor HEP progressed as pt without restrictions per f/u with 04/11. Pt completed good return demo of HEP including: finger and thumb taps, thumb opposition/flexion/ extension stretch/abduction. Pt denied pain during all AROM and stretching Side Right - Assessment Patient Response to Excellent Treatment Rehabilitation Excellent Potential Impairments Functional Activities,Pain Identified Progress Towards Excellent Progress Goals Assessment of Improving Overall Progress Assessment of Pt reports post op follow up with surgeon went well, no Improvement restrictions, stitches were removed though surgical would had open portions of incision with steri-strips in place, no signs of infection, wound healing appears appropriate. Pt states she has been having almost no pain with activity though notices certain movements will be uncomfortable at incision site and ongoing numbness of thenar eminence. HEP progressed, no pain with movement of thumb or wrist. Pt making excellent progress, will continue to benefit from skilled OT intervention, continue with POC. Home Exercise HEP progressed - finger and thumb taps, thumb Program opposition/flexion/extension stretch/abduction Reviewed with Goals,Progress Being Made,Home Exercise Program Patient/Caregiver Patient/Caregiver Excellent Understanding -
--- NOTE | 2025-04-19 16:40 | OT.OP.DC ---
Visit Care Team Role Provider Type Peri Canas MD Family Provider Physician Primary Care Provider Address: [address] [place] [address], [address] Email: [email or web address] Bo Martínez MD Attending Provider Physician Referring Provider Address: [address] [place] [address], [address] Email: [email or web address] Discharge Summary OT Outpatient Discharge Summary Start: 04/06/25 13:32 Freq: Status: Active Protocol: Document 04/06/25 13:32 (Rec: 04/06/25 13:35 [id number]) General Information - Adult Plan of Care Dates 04/06/25-05/04/25 Insurance [employer], no [place];no copay;$100 deductible satisfied;max Information 60 PT/OT/ST combined Setting Treatment Setting Outpatient Care Visit Type Note Type Discharge summary Referral Referring Physician Dr Bo Martínez Reason for Referral recurrent ganglion cysts with R wrist pain Identification Identification Yes Confirmed Identification EMR Confirmed By Social Information Social History I haven't really had much pain since the surgery, and have been able to use it but, I am careful and don't picker tender much weight Patient Questionnaires Quick Dash- Upper Extremity Quick Dash UE Score 25 (on eval) Quick Dash UE 20 to 39% Impaired (Score 20-39) Impairment Goals Objective Measurements Objective 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 Pt reports negligible pain since surgery though noting numbness at thenar eminence of R hand. Pt advised she has been avoiding lifting much weight but has been using her affected hand as usual with surgical bandage intact. Short Term Goals Short Term Goals 1. Pt will independently demo HEP 2. Pt will report 0/10 pain at rest Penitentiary Goals Penitentiary Goals 1. Pt will demonstrate improved perception of functional independence as evidenced by quick DASH score <15 2. Pt will verbalize proper splint use and wear independently to prevent functional deficits or skin breakdown Assessment/Plan Assessment Patient Response Excellent Rehabilitation Excellent Potential Impairments Functional Activities,Pain,Range of Motion,Meaningful Identified Activities,Stiffness,Soft Tissue Mobility Treatment Assessment 29 year old R hand dominant female referred to Occupational Therapy by Dr Bo Beaver following surgical excision of multiple ganglion cysts of R wrist that were causing nerve compression and numbness with intermittent pain. Pt POD 8 at time of evaluation and thus strengthening/resistance deferred to next treatment pending removal of surgical bandages and follow up with surgeon 04/11. Pt demonstrating appropriate use of RUE during functional tasks, is avoiding lifting and has been completing light AROM of fingers and thumb since surgery date. Pt will benefit from continued skilled OT to address surgical after care, progression of HEP and strengthening/AROM. Home Exercise Pt educated on AROM to prevent stiffness and swelling Program until f/u with surgeon and removal of surgical bandages Reviewed with Goals,Progress Being Made,Home Exercise Program Patient Patient Excellent Understanding Plan Length of treatment 4 (weeks) Plan of Care Start 04/06/25 Date Plan of Care End 05/04/25 Date Treatment Frequency Once a Week Treatment Duration 45 Minutes Therapeutic Contents Active Range of Motion,Functional Activities,Home Exercise Program,Manual Therapy,Education,Self-Care, Stretching/Flexibility Activities,Therapeutic Activities,Therapeutic Exercises,Work Conditioning Modalities As Needed Types of Modalities Ice Massage Patient Instruction Home Exercise Program,Plan of Care,Questions/Concerns Patient Continue with Current Program Recommendations Status: Active Protocol: Document 04/19/25 16:34 (Rec: 04/19/25 16:40 [id number]) OT Outpatient Adult Treatment Note Setting Treatment Setting Outpatient Care Visit Type Note Type Discharge Summary - - Objective Short Term Goals 1. Pt will independently demo HEP [Met 6/10] 2. Pt will report 0/10 pain at rest [Met 6/10] Licensed Physical Therapist Assistant Goals 1. Pt will demonstrate improved perception of functional independence as evidenced by quick DASH score <15 [unable to assess at d/c] 2. Pt will verbalize proper splint use and wear independently to prevent functional deficits or skin breakdown [Met 6/10] - - Assessment Patient Response to Excellent Treatment Rehabilitation Excellent Potential Impairments Pain Identified Progress Towards Goals Met,Appropriate for Discharge Goals Assessment of Rehabilitated Overall Progress Assessment of Spoke with pt 04/19/25, pt cancelled today's appt Improvement stating no further concerns, all therapeutic goals have been achieved, pt noting no further functional deficits, pain no longer limiting performance and feels maximum benefit from OT has been achieved. Per pt request and per all goals reported as met, d/c OT 04/19. - Plan Therapy Discharge from Occupational Therapy Recommendations
== END 2025-04-25 11:12 | disposition home or self-care (01) ==
LOC: OT 13:45
PROVIDERS: Family Provider Student in an Organized Health Care Education/Training Program; PCP Student in an Organized Health Care Education/Training Program; Referring Provider Orthopaedic Surgery; Visit Provider Orthopaedic Surgery
DX: M67.431 Ganglion, right wrist (principal)
CPT/HCPCS: 97110; 97165; 97530

== ENCOUNTER → 2025-09-16 10:19 | Outpatient (CLI) | payer OTHER, SELFPAY | LOC: LAB 10:19 | PROVIDERS: Family Provider Student in an Organized Health Care Education/Training Program; PCP Student in an Organized Health Care Education/Training Program; Visit Provider Nurse Practitioner Family | DX: J02.9 Acute pharyngitis, unspecified (principal) | CPT/HCPCS: 87070 ==